=== PATIENT | female | born 1950 | race Hispanic/Latino ===

== ENCOUNTER 2017-09-19 07:55 | Outpatient (CLI) | payer MEDICARE, OTHER ==
--- NOTE | 2017-09-19 10:16 | MRI ---
MRI LUMBAR SPINE: INDICATIONS: Lumbar radiculitis. Back pain. TECHNIQUE: Multiplanar, multisequential imaging of the lumbar spine obtained without IV contrast. FINDINGS: The lumbar vertebrae maintain normal height and alignment. Vertebral body signal is normal. There i s mild loss of disk space at L3-L4. The disk spaces in the lumbar spine are otherwise normally prese rved. L1-L2: No disk bulge or protrusion. Mild facet arthrosis; however, no central canal or foraminal st enosis. L2-L3: No significant disk bulge. Mild facet arthrosis. No central canal or foraminal stenosis. L3-L4: Broad-based disk protrusion flattens the thecal sac. Mild facet and ligamentous hypertrophy. There is posterior epidural fat present. These findings result in mild to moderate central canal s tenosis. L4-L5: No significant disk bulge. Mild facet hypertrophy without central canal or foraminal stenosi s. L5-S1: Minimal disk bulge. No central canal or foraminal stenosis. IMPRESSION: Broad-based disk protrusion at L3-L4, combined with facet and ligamentous hypertrophy and posterior e pidural fat results in moderate central canal stenosis. POS: [facility]
== END 2017-09-19 07:56 | disposition home or self-care (01) ==
LOC: SCSMRI 07:55
DX: M54.16 Radiculopathy, lumbar region (principal); M48.061 Spinal stenosis, lumbar region without neurogenic claudication; M24.28 Disorder of ligament, vertebrae
CPT/HCPCS: 72148